=== PATIENT | female | born 1955 | race Caucasian/White ===

== ENCOUNTER 2016-12-29 01:40 | Inpatient (IN) ==
[2016-12-29] MEDS ORDERED: ALBUTEROL NEB ONE (01:45)
[2016-12-29] MEDS ORDERED: ASPIRIN PO STA (01:45)
[2016-12-29] MEDS ORDERED: SOLU-MEDROL IV ONE (01:46)
[2016-12-29] MEDS ORDERED: ALBUTEROL NEB INH ONE (01:46)
[2016-12-29] MEDS ORDERED: DUONEB (A & A) INH ONE (01:46)
[2016-12-29 02:10] LABS: MANUAL DIFF NEEDED? NO
[2016-12-29 02:20] LABS: BASO% 0.3 % (0.0-0.8); EOS# 0.05 X1000 (0.0-0.7); EOS% 0.4 % (0.0-10.0); HEMATOCRIT 40.4 % (37.0-47.0); HEMOGLOBIN 13.6 g/dL (12.0-16.0); IMM GRAN# 0.02 X1000 (0.0-0.04); IMM GRAN% 0.2 % (0.0-0.5); LYMPH# 1.52 X1000 (1.2-3.4); LYMPH% 13.2 % (20.5-51.1); MCHC 33.7 g/dL (33-37); MONO# 0.39 X1000 (0.11-0.59); MONO% 3.4 % (1.7-9.3); MPV 9.4 FL (7.4-10.4); NEUT% 82.5 % (42.2-75.2); PLT 315 X1000 (130-400); RBC 4.39 XMIL (4.2-5.4)
[2016-12-29 02:23] LABS: INR 0.86 (0.86-1.15); PROTIME 12.4 Seconds (12.1-15.5)
[2016-12-29 02:24] LABS: PTT PL 32.9 Seconds (22.6-43.9)
[2016-12-29 02:27] LABS: AGAP 10; ALBUMIN 3.9 g/dL (3.5-5.0); ALKALINE PHOSPHATASE 71 U/L (32-104); BUN 20 mg/dL (8-22); CALCIUM 9.4 mg/dL (8.8-10.2); CHLORIDE 98 mmol/L (98-107); CK PROFILE 138 U/L (24-173); COSMO 278; GOT 37 U/L (10-30); GPT 29 U/L (10-36); MAGNESIUM 2.1 mg/dL (1.5-2.7); POTASSIUM 4.5 mmol/L (3.5-5.1); SODIUM 135 mmol/L (136-145); TCO2 27 mmol/L (25-35); TOTAL PROTEIN 6.6 g/dL (6.3-8.3)
[2016-12-29] MEDS ORDERED: HEPARIN IV ONE (03:04)
[2016-12-29 03:15] LABS: BE 3.3 mmoll (-3.0-3.0); BLOOD TYPE ARTERIAL; DRAW SITE L BRACHIAL; METHB 1.4 % (0.0-1.5); O2(CT) 19.4 mL/dL (15.0-23.0); PO2(98.6) 98 mmHg (60-100); SAMPLE BLOOD; SAO2 98.7 % (95.0-100.0); THB 14.5 g/dL (11.5-17.4); pH(98.6) 7.35 (7.35-7.45)
[2016-12-29] MEDS ORDERED: HEPARIN 25,000 UNITS/D5W 25,000 UNIT/250 ML IV.SOLN IV SCH (03:15)
[2016-12-29 03:17] LABS: ALLEN TEST NO; MODALITY BI PAP; PCO2(98.6) 55 mmHg (35-45)
--- NOTE | 2016-12-29 04:25 | EKG Report ---
Test Performed on : 12/29/2016 02:55:17 AM Test Reason : CHEST PAIN Blood Pressure : / mmHG Vent. Rate : 086 BPM Atrial Rate : 086 BPM P-R Int : 168 ms QRS Dur : 070 ms QT Int : 330 ms P-R-T Axes : 084 -62 082 degrees QTc Int : 394 ms Normal sinus rhythm. Possible Left atrial enlargement Left axis deviation Anteroseptal infarct , age undetermined Abnormal ECG When compared with ECG of 23-JAN-2016 11:46, Anteroseptal infarct is now present Nonspecific T wave abnormality no longer evident in Inferior leads T wave inversion no longer evident in Anterior leads Unconfirmed Result
--- NOTE | 2016-12-29 04:45 | PROVIDER DOCUMENTATION ---
This chart was entered by Divya Smith Scribe, acting as scribe for Edgardo Myers MD. HPI-Respiratory General - General Chief Complaint: Shortness of Breath Stated Complaint: CHEST PAIN Time Seen by Provider: 12/29/16 01:45 Source: patient Allergies/Adverse Reactions: Patient Allergies Allergy/AdvReac Type Severity Reaction Status Date / Time No Known Allergies Allergy Verified 12/29/16 01:59 Home Medications: Home Medication List Medication Instructions Recorded Confirmed Last Taken Type Albuterol Sulfate Inhaler 1 - 2 puff INH Q4H PRN PRN 05/02/15 01/23/16 12/29/16 01:15 History [Ventolin Hfa] Montelukast Sodium [Singulair] 10 mg PO QAM 05/02/15 01/23/16 1 Day Ago History Rosuvastatin Calcium [Crestor] 10 mg PO HS 05/02/15 01/23/16 1 Day Ago History Aspirin EC 81 mg PO DAILY 12/29/16 12/29/16 1 Day Ago History Buspirone HCl [Buspirone HCl] 10 mg PO QHS 12/29/16 12/29/16 1 Day Ago History Carvedilol [Coreg] 3.125 mg PO BID 12/29/16 12/29/16 1 Day Ago History Fluticasone/Salmeterol [Advair 1 unit INH BID 12/29/16 12/29/16 1 Day Ago History 250-50 Diskus] Isosorbide Mononitrate E.r. [Imdur] 30 mg PO DAILY 12/29/16 12/29/16 1 Day Ago History Loratadine [Loratadine] 10 mg PO DAILY 12/29/16 12/29/16 1 Day Ago History Nitroglycerin [Nitrostat] 12/29/16 12/29/16 01:00 History - History of Present Illness-Resp Nature of Presenting Problem: 61 Y/O f present to ER with the complain of SOB and chest pain x1 hour [employer]. pt has Hx of COPD and GA Severity in ED: reports: moderate Onset/Duration: reports: 1 hour ago Timing: reports: still present Cough Quality/Degree: reports: no cough Current Respiratory Medication Therapy: Initiated see nurses note Associated Symptoms: reports: chest pain/soreness, short of breath Review of Systems - Adult - REVIEW OF SYSTEMS - ADULT Constitutional: reports: no symptoms reported Eyes: reports: no symptoms reported Ears, Nose, Mouth & Throat: reports: no symptoms reported Cardiovascular: reports: chest pain. denies: palpitations Respiratory: reports: shortness of breath. denies: cough Gastrointestinal: reports: no symptoms reported Genitourinary: reports: no symptoms reported Musculoskeletal: reports: no symptoms reported Integumentary: reports: no symptoms reported Neurological: reports: no symptoms reported Psychiatric: reports: no symptoms reported Endocrine: reports: no symptoms reported Hematologic/Lymphatic: reports: no symptoms reported Allergic/Immunologic: reports: no symptoms reported All Other Systems: Reviewed and Negative Past History - Adult - PAST MEDICAL HISTORY-ADULT Review of Records: reports: Old Records Reviewed, Nursing Assessment Review Cardiovascular: reports: HTN, hyperlipidemia Respiratory: reports: asthma, COPD - IMMUNIZATION STATUS Childhood Immunizations: See Nurse Assessment Flu Vaccine: See Nurse Assessment Physical Exam-General - PHYSICAL EXAM-ADULT Initial Vital Signs Reviewed: Yes - CONSTITUTIONAL General Appearance: alert, mild distress - EYES Eyes: PERRL/EOMI, pink conjunctivae - HEAD, EARS, NOSE, MOUTH & THROAT HENMT: normocephalic/atraumatic, moist mucous membranes, normal ENT inspection - NECK Neck: non-tender, full range of motion, supple - RESPIRATORY Respiratory: respiratory distress, decreased breath sounds - CARDIOVASCULAR Cardiovascular: normal peripheral pulses, regular rate, rhythm - GASTROINTESTINAL (ABDOMEN) Abdominal Exam: normal bowel sounds, non tender, soft - MUSCULOSKELETAL Back Exam: normal inspection, no CVA tenderness, no vertebral tenderness Extremity: non-tender, normal inspection - SKIN Integumentary: normal color, normal turgor, warm/dry - NEUROLOGIC Neurologic: grossly normal, no motor/sensory deficits - PSYCHIATRIC Psych/Mental Status: normal mood/affect, normal thought content, normal thought process, oriented x 3 Progress - PLAN OF CARE/RESULTS Progress/Plan/Lab Results: Vital Signs - 8 hr 12/29/16 01:44 12/29/16 01:45 12/29/16 03:00 Temperature 97.2 F L Pulse Rate 99 H 96 H 87 Respiratory Rate 31 H 36 H 26 H Blood Pressure 142/94 99/73 O2 Sat by Pulse Oximetry 98 96 98 12/29/16 03:15 12/29/16 04:15 Temperature Pulse Rate 88 89 Respiratory Rate 23 26 H Blood Pressure 101/77 107/69 O2 Sat by Pulse Oximetry 96 99 Laboratory Results - last 24 hr 12/29/16 12/29/16 12/29/16 01:50 02:00 02:00 WBC RBC Hgb Hct MCV MCH MCHC RDW Std Deviation Plt Count MPV Immature Gran % (Auto) Neut % (Auto) Lymph % (Auto) Crane % (Auto) Eos % (Auto) Baso % (Auto) Immature Gran # (Auto) Neut # (Auto) Lymph # (Auto) Crane # (Auto) Eos # (Auto) Baso # (Auto) PT INR APTT (Factor Assay) D-Dimer Specimen Type ARTERIAL Sample Site L BRACHIAL pH 7.35 pCO2 55 H* pO2 98 HCO3 27.4 H Base Excess 3.3 H Oxyhemoglobin 94.6 L ABG O2 Sat (Calculated) 19.4 ABG O2 Saturation 98.7 ABG Carboxyhemoglobin 2.80 H ABG Methemoglobin 1.4 Miguel Test NO A-a O2 Difference 33.0 Total Hemoglobin 14.5 Lactate 0.90 Blood Gas Modality BI PAP Vent Mode BIPAP FiO2 % 28.0 Inspiratory BiPAP 16.0 Expiratory BiPAP 6.0 Sodium 135 L Potassium 4.5 Chloride 98 Carbon Dioxide 27 Anion Gap 10 BUN 20 Creatinine 0.6 Estimated GFR/1.73 m2 > 60 BUN/Creatinine Ratio 33 Glucose 193 H Calculated Osmolality 278 Calcium 9.4 Magnesium 2.1 Total Bilirubin 0.70 AST 37 H ALT 29 Alkaline Phosphatase 71 Creatine Kinase 138 Troponin T 0.135 H Dln-O-Kafqyyludki Pept Total Protein 6.6 Albumin 3.9 Globulin 3.0 Albumin/Globulin Ratio 1.0 12/29/16 12/29/16 12/29/16 02:00 02:00 02:00 WBC 11.49 H RBC 4.39 Hgb 13.6 Hct 40.4 MCV 92.0 MCH 31.0 MCHC 33.7 RDW Std Deviation 11.6 Plt Count 315 MPV 9.4 Immature Gran % (Auto) 0.2 Neut % (Auto) 82.5 H Lymph % (Auto) 13.2 L Crane % (Auto) 3.4 Eos % (Auto) 0.4 Baso % (Auto) 0.3 Immature Gran # (Auto) 0.02 Neut # (Auto) 9.48 H Lymph # (Auto) 1.52 Crane # (Auto) 0.39 Eos # (Auto) 0.05 Baso # (Auto) 0.03 PT 12.4 INR 0.86 APTT (Factor Assay) 32.9 D-Dimer 0.67 H Specimen Type Sample Site pH pCO2 pO2 HCO3 Base Excess Oxyhemoglobin ABG O2 Sat (Calculated) ABG O2 Saturation ABG Carboxyhemoglobin ABG Methemoglobin Miguel Test A-a O2 Difference Total Hemoglobin Lactate Blood Gas Modality Vent Mode FiO2 % Inspiratory BiPAP Expiratory BiPAP Sodium Potassium Chloride Carbon Dioxide Anion Gap BUN Creatinine Estimated GFR/1.73 m2 BUN/Creatinine Ratio Glucose Calculated Osmolality Calcium Magnesium Total Bilirubin AST ALT Alkaline Phosphatase Creatine Kinase Troponin T Udq-U-Fnectayqusf Pept 83 Total Protein Albumin Globulin Albumin/Globulin Ratio Orders Category Date Time Status Cardiac Monitoring DIRECTED Care 12/29/16 01:45 Active Oxygen Therapy- ED Nursing DIRECTED Care 12/29/16 01:45 Active Saline Loc NOW Care 12/29/16 01:45 Active CHEST-PORTABLE [RAD] Stat Exams 12/29/16 01:[address] ANGIOGRM/PULMONARY ARTERIES [CT] Stat Exams 12/29/16 03:02 Taken ABG [RESP] Routine Lab 12/29/16 01:50 Completed CBC WITH ELECTRONIC DIFF [HEME] Stat Lab 12/29/16 02:00 Completed CK PROFILE [SP CHEM] Stat Lab 12/29/16 02:00 Completed COMPREHENSIVE METABOLIC PANEL [CHEM] Stat Lab 12/29/16 02:00 Com[address] D-DIMER PL [COAG] Stat Lab 12/29/16 02:00 Completed MAGNESIUM [CHEM] Stat Lab 12/29/16 02:00 Completed PRO B-NATRIURETIC PEPTIDE Stat Lab 12/29/16 02:00 Com[address]IME WITH INR PL [COAG] Stat Lab 12/29/16 02:[address] [COAG] Stat Lab 12/29/16 02:00 Completed TROPONIN T Stat Lab 12/29/16 02:00 Completed Albuterol 2.5MG/Ipratrop 0.5MG [Duoneb (A & A)] Med 12/29/16 01:46 Discontinued 3 ml INH NOW ONE Albuterol [Albuterol Neb] Med 12/29/16 01:45 Discontinued 5 mg .ROUTE .STK-MED ONE Albuterol [Albuterol Neb] Med 12/29/16 01:46 Discontinued 5 mg INH NOW ONE Aspirin Med 12/29/16 01:45 Discontinued 325 mg PO STAT STA Heparin Med 12/29/16 03:04 Discontinued 5,000 unit IV NOW ONE Heparin 25,000 Units/D5w Med 12/29/16 03:15 Active 25,000 unit in 250 ml IV 5.443 mls/hr Methylprednisolone Sod Succ [Solu-Medrol] Med 12/29/16 01:46 Discontinued 125 mg IV NOW ONE Aerosol Treatments Routine Oth 12/29/16 01:46 Completed Aerosol Treatments Stat Oth 12/29/16 01:46 Completed BIPAP Stat Oth 12/29/16 01:50 Active EKG [EKG] Stat Ther 12/29/16 01:45 Draft Result Diagrams: 12/29/16 02:00 12/29/16 02:00 - REASSESSMENT Reassessment #1 Time Reassessed: 03:17 (pt reports breathing much easier and all chest pain has stopped) Status: improving - EKG 1 Time of EKG reading by physician:: 02:55 EKG Read and Signed by:: Edgardo Myers EKG Interpretation (*Must complete 3 of following elements*): Abnormal Rate: 86 Rhythm: normal sinus rhythm Comments: abnormal ECG - XRAY 1 XRAY: Bilateral XRAY Study: Chest Impression: Abnormal XRAY Interpretation: progressive COPD by Dr. Torrez - CT/MRI 1 CT Study: Angiogram (anterior and mediatinal masses, right upper lobe mass all concerning for malignancy) Departure - Departure Date of Disposition Decision: 12/29/16 Time of Disposition Decision: 04:44 DIAGNOSIS: COPD exacerbation, Elevated troponin, Lung mass Disposition: ADMITTED INPATIENT 09 Certified Medical Emergency: Emergent Condition: Stable Referrals and Follow-Ups: None,PCP [Primary Care Provider] - - Critical Care Note This patient required my direct & personal management of CC.: No Attestation - Physician/ ADARSH Attestation Patient care was provided by Advanced Practice Provider:: No The physician spent face to face time with patient:: Yes Advanced Practice Provider documentation review:: Supervising physician onsite and consulted in the evaluation and care of this patient. The physician did have a face to face encounter with the patient. This chart was documented by the indicated scribe, (Ghera,Divya, Scribe) and accurately reflects the services I performed and decisions made by me, Edgardo Myers MD, as attested by the provider's signature.
--- NOTE | 2016-12-29 07:23 | Diag Imaging Result Doc PS360 ---
EXAM: CHEST-PORTABLE HISTORY: sob TECHNIQUE: Two views COMPARISON: 01/23/2016 FINDINGS: The lungs are hyperexpanded. Heart is not enlarged. The pulmonary vessels are small. There are no infiltrates. No pleural effusions identified. Superior mediastinal prominence on the right. This was not present on the prior exam. IMPRESSION: 1.Emphysema 2.Superior mediastinal prominence concerning for adenopathy or mass. This was not present on the prior exam. Electronically signed by Archie Denny 12/29/2016 7:21 AM
--- NOTE | 2016-12-29 08:14 | Diag Imaging Result Doc PS360 ---
EXAM: CT ANGIOGRM/PULMONARY ARTERIES HISTORY: sob/cp/+ d dimer TECHNIQUE: CT chest with contrast. Dose reduction protocol. MIP images obtained. COMPARISON: 01/23/2016 FINDINGS: There is a large right-sided superior and middle mediastinal mass extending into the hilum. At the level of the amina the mass/adenopathy measures 2.8 x 4.1 cm. In the anterior upper mediastinum the mass measures at least 2.8 x 5.7 cm. There is extrinsic narrowing of the right main pulmonary artery and right upper lobe pulmonary artery. Normal opacification of the pulmonary arteries and their branches. No pleural effusions. No cardiomegaly. No thoracic aortic aneurysm or dissection. Mild to moderate emphysematous changes. There is an oblong spiculated 7 x 14 mm nodule posteriorly in the right upper lobe. Vague oblong 9 mm density in the right upper lobe. IMPRESSION: 1.Mass and adenopathy consistent with malignancy 2.Emphysema 3.No pulmonary emboli 4.A pulmonary report was given at 4:29 AM Electronically signed by Archie Denny 12/29/2016 8:11 AM
[2016-12-29] MEDS: ASPIRIN EC PO SCH (08:42)
[2016-12-29] MEDS: IMDUR PO SCH (08:42)
[2016-12-29] MEDS: CLARITIN PO SCH (08:42)
[2016-12-29] MEDS ORDERED: COREG PO SCH (09:00)
[2016-12-29] MEDS ORDERED: BROVANA NEB ONE ×2 (09:25→19:21)
[2016-12-29] MEDS: BROVANA NEB INH SCH ×2 (09:34→19:33)
[2016-12-29] MEDS: PULMICORT INH SCH ×2 (09:35→19:33)
[2016-12-29] MEDS: COZAAR PO SCH (12:16)
--- NOTE | 2016-12-29 12:24 | CONSULTATION ---
DATE OF CONSULTATION: 12/29/2016 REASON FOR CONSULT: Cardiology was consulted for abnormal cardiac enzymes. HISTORY OF PRESENT ILLNESS: Ms. Maria Esther Cormier is a 61-year-old lady who has COPD, emphysema, hypertension, hyperlipidemia and has had a non-Q-wave myocardial infarction. On 01/24/2016 was transferred to [facility] and underwent coronary angiogram which revealed normal coronary arteries. Non ST elevation with at Takotsubo appearance on LV function and subsequently was discharged from there. She is a chronic smoker, having smoked about a pack of cigarettes a day all her life and has recently quit smoking. She came in with increasing shortness of breath for the last couple of weeks associated with mucopurulent expectoration. Denies any fevers or chills. There is no hemoptysis. As far as chest pains are concerned, she has had chronic shortness of breath for 4 years and had episode of chest pain when she was admitted in January 2016 at [facility] and subsequently 2 days back had some episode of chest pain. There is no radiation to the back or down the arms. She was admitted she underwent a CT angiogram which was suspicious for likely malignancy. From a cardiac standpoint, there are no palpitations. There is no dizziness or syncope. REVIEW OF SYSTEMS: A full 14-point review of system was done. Gastrointestinal : There is no history of nausea, vomiting, diarrhea. There is no history of hematemesis or melena. Cardiovascular: As above. Endocrine: Stable. Respiratory: As above. In addition, there is no fevers or chills. Genitourinary: There is no dysuria or hematuria. PAST MEDICAL HISTORY: 1. Hypertension. 2. Hyperlipidemia. 3. COPD on home O2. 4. Non ST elevation chronic likely troponin abnormality with normal coronary arteries with Takotsubo appearance on the left ventricular function. By cardiac catheterization on 01/25/2016 at [facility] left main was normal. Left anterior descending artery was normal. Circumflex continued as a small obtuse marginal artery. Right coronary artery, posterolateral branches were free of disease. LV ejection fraction at that time was soft 40% with hyperdynamic posterobasal segments suggestive of Takotsubo appearance. HOME MEDICATIONS: Aspirin 81 mg a day. Loratadine 10, buspirone 10, Coreg 3.125 b.i.d., isosorbide 30. Inhalers, montelukast, lovastatin. ALLERGIES: She not known to be allergic to any medication. SOCIAL HISTORY: She does not drink. She is a chronic smoker, has recently quit smoking. PHYSICAL EXAMINATION: Vital Signs: Blood pressure 118/92. Cardiovascular: Normal jugular venous pressure. There no thyromegaly. There no carotid bruit. First and second heart sounds were heard. There was no S3 gallop. Respiratory: Scattered wheeze. Abdomen : Soft, nontender. There was no guarding or rigidity. Bowel sounds were heard. Central nervous system: Alert and was moving all 4 extremities. Extremities: Examination of extremities revealed no pedal edema. HEENT: Atraumatic, normocephalic. Pupils were equal and reacting to light. LABORATORY EXAMINATION: Revealed a troponin when she came in was 0.135. Troponin was abnormal subsequently on 0.329. Previous troponin on 01/23/2016 was 0.480, on 2015 subsequently was 0.388 and 0.288. She had a pulmonary arteriogram done which revealed mass and adenopathy consistent with malignancy in the right sided superior middle mediastinal. There was no pulmonary emboli. Emphysema was noted next. Chemistry: Sodium 135, potassium 4.5, BUN 20, creatinine 0.6. Hematology: Hemoglobin 13.6, hematocrit 40, platelet count of 315,000. ASSESSMENT AND PLAN: Ms. Maria Esther Cormier is a 61-year-old lady who is a smoker, has COPD emphysema has had Takotsubo cardiomyopathy with normal coronary arteries on . From a cardiac standpoint: 1. She has elevated troponin and she has had this probably chronically elevated troponin given her recent cardiac catheterization, and abnormal troponin as mentioned above in on January 2016. She has type 2 myocardial infarction which is in the setting of normal coronary arteries and Takotsubo pattern. Given this we will add Cozaar 50 mg to her medical regimen. In addition to increasing the Coreg to 6.25 mg twice daily and continue with the aspirin. We will get an echocardiogram to reassess cardiac and valvular function. 2. I will discontinue the IV heparin drip and treat her medically. Electrocardiogram does not reveal any ST elevation and given this, we would recommend continuing with the aspirin. 3. She was diagnosed to have new likely malignancy by her CT scan. Oncology has been consulted. Would recommend proceeding with testing and treatment for her likely malignancy as deemed fit. 4. Chronic obstructive pulmonary disease and emphysema. Continue with current medication. 5. Hypercholesterolemia. She is on Crestor. I have not made any changes to her medications. Thank you for the consult. We will follow hospital course. cc: Edy Kirkland MD MTDDolores
--- NOTE | 2016-12-29 15:03 | PROGRESS NOTE ---
DATE: 12/29/2016 Ms. Cormier was admitted I think on today. Presented with chest pain. A 61-year-old with history of COPD, emphysema, hypertension, hyperlipidemia, has had a non-Q-wave myocardial infarction. On 01/23/2006 he was transferred to [facility], underwent coronary arteriogram which revealed normal coronary arteries, Non ST elevation with Takotsubo appearance in LV function. Subsequently he was discharged from there. He is a chronic smoker having smoked about a pack of cigarettes a day. Recently quit smoking. She came in with increased shortness of breath last couple weeks associated with mucopurulent expectoration. Denies fever or chills. No hemoptysis. She was having chest pains which started during the eclipse and she has had them off and on. Chronic shortness of breath for over 4 years. She was admitted back in 2016 to [facility]. Subsequently 2 days back had some episodes of chest pain. No radiation to the back or arms. Underwent CT angiogram suspicious and likely malignancy. Cardiac standpoint, there are no palpitations, no dizziness or syncope. So she has non ST elevation likely troponin abnormality with normal coronary arteries, Takotsubo appearance in left ventricular function. Cardiac catheterization done 01/25/2016 at [facility], left main was normal, left anterior descending was normal, circumflex continued small obtuse marginal artery, right coronary artery was free of disease. Ejection fraction was 40%. Hyperdynamic posterior basal segment suggestive of Takotsubo appearance. Moved her to the [facility]. She had a fairly recent catheterization. ASSESSMENT AND PLAN: 1. She has type 2 myocardial infarction which is in a setting of normal coronary arteries and Takotsubo pattern. They are going to add Cozaar to her regimen 50 mg, and Coreg 6.25 mg b.i.d., get an echocardiogram to assess cardiac and valvular function. 2. Discontinue the IV heparin and treat her medically. Electrocardiogram does not reveal ST elevation. Continue with the aspirin. 3. Diagnosis of likely malignancy on CT scan. Oncology was consulted. Recommend proceeding with testing treatment for underlying malignancy. 4. Chronic obstructive pulmonary disease. Log history of smoking. 5. Hypercholesterolemia. Her pulmonary arteriogram revealed mass adenopathy consistent with malignancy, emphysema. No pulmonary emboli. There is a large right-sided superior middle mediastinal mass extending into the hilum at the level of the amina. The mass measures 2.8 x 5.7, extensive narrowing of the right main pulmonary artery, right upper lobe artery, normal opacification of the pulmonary arteries and other branches. cc: Miguel Ovalle MD
--- NOTE | 2016-12-29 15:37 | HISTORY AND PHYSICAL ---
PRIMARY CARE PHYSICIAN: None. CHIEF COMPLAINT: Shortness of breath and incidental finding of new mediastinal mass. HISTORY OF PRESENT ILLNESS: Ms. Cormier is a 61-year-old female with past medical history of hypertension, hyperlipidemia, COPD on 2 L at home, [place] in January 2016. Comes to the hospital via ambulance, transferred from [place]. Patient presented to [place] earlier this morning complaining of shortness of breath. According to the patient the power went off and that was what triggered her shortness of breath. Therefore they went to [place] for COPD treatment. The patient had inhalation treatment and shortness of breath improved. She is back to baseline. However while she was in the emergency room at [place] she developed chest pain. Troponins were obtained. First troponin was positive at 0.135. Heparin treatment 25,000 units was started. Also a D-dimer was obtained to rule out a pulmonary embolism. The D-dimer came back positive and a CT scan was done. There was no pulmonary embolism. However the CT scan revealed new anterior mediastinal masses. Therefore patient was transferred to [facility] for further evaluation and treatment by Oncology. REVIEW OF SYSTEMS: According to the patient, she has lost 12 pounds in 6 weeks. No night sweats. All other systems were reviewed and were negative except as stated above. In the emergency room over at [place] she was getting aspirin and heparin 25,000 units, and D5 W, Solu-Medrol, and nebulization treatments. PAST MEDICAL HISTORY: Hypertension, hyperlipidemia, COPD on 2 L. [place] in 2015. Per patient, she was taken to [place] in 2016 to do cardiac cath, however no stents were placed. PAST SURGICAL HISTORY: None. ALLERGIES: None. HOME MEDICATIONS: 1. Montelukast 10 mg tablet oral daily. 2. Crestor 10 mg tablet oral daily. 3. Ventolin inhaler daily. 4. Fluticasone-salmeterol 1 inhalation twice a day. 5. Isosorbide mononitrate 30 mg tablet oral daily. 6. Carvedilol 3.125 mg tablet twice a day. 7. Nitroglycerin 0.4 mg sublingual p.r.n. chest pain. 8. Buspirone 10 mg tablet oral daily. 9. Loratadine 10 mg once a day. 10. Aspirin 81 mg tablet oral daily. SOCIAL HISTORY: Patient quit smoking in 2016. The patient denies using alcohol. The patient admits using marijuana treatment for panic attacks. FAMILY HISTORY: Mother and father both have coronary artery disease. Mother has diabetes. COMPLETE PHYSICAL EXAM: Vitals: Temperature 98.3 degrees, pulse 28, blood pressure 118/92, oxygen saturation 2 L nasal cannula. General: Patient is alert and oriented x3. Mild distress. HEENT: Head is normocephalic, atraumatic. Eyes, DARSHANA. Dry mucous membranes. Neck: Supple. Pulmonary: Bilateral scattered wheezing. Diminished breath sounds in all lung jimenez. The patient is using accessory muscles. Cardiovascular: S1, S2. Mild systolic murmur on the left sternal border. No gallops. Abdomen: Soft, nondistended, nontender. Extremities: No lower extremity edema. The patient is unable to stand up due to generalized weakness. Neurologic: Cranial nerves 2-12 grossly intact. No focal deficits. Psych: Normal mood and affect. INITIAL LAB DATA: White blood cell count 11.5, hemoglobin 13.6, hematocrit 40Dm platelets 315,000. Sodium 135, potassium 4.5, BUN 20, creatinine 2.6, bicarb 27, troponin number 1 positive at 2 a.m. which was 0.135. BNP 83. D-dimer positive at 0.6. Troponin number 2 pending. IMAGING: CT scan of the chest shows new anterior mediastinal masses which was informed to at [place]. Official read is still pending. ASSESSMENT AND PLAN: 1. New anterior mediastinal masses. The patient is aware of the new findings. Dr. Carroll from Oncology was asked to see the patient as a consult. 2. Chest pain. Currently patient is asymptomatic. Has some musculoskeletal pain over the right and left side of the chest. As mentioned above patient received 25,000 units of heparin at [place]. We will get 2 more sets of troponins. 3. Chronic obstructive pulmonary disease. The patient uses inhalers at home. While she is in the hospital we will provide her with Pulmicort, Brovana, and DuoNeb. The patient is back at her baseline. 4. Coronary artery disease. We will continue patient's home medications, aspirin. 5. Hypertension. We will continue patient's home medication. 6. Generalized weakness. Physical therapy evaluation was placed. cc: Dara Mays MD
--- NOTE | 2016-12-29 16:04 | ECHO REPORT ---
ORDER DATE: 12/29/2016 ECHOCARDIOGRAPHIC MEASUREMENTS: 1. Interventricular septum 1.0. Left ventricular posterior wall 0.9. Diastolic diameter 4.4. 2. Left atrium 3.1. Aorta 3. 3. Technically suboptimal study. 4. Definity was used to better assess left ventricular systolic function. Normal left ventricular cavity size. Increased contractility at the base with significant distal anteroapical akinesis suggestive of Takotsubo cardiomyopathy, ejection fraction of 30%. Aortic valve leaflets are trileaflet. There is no aortic stenosis or regurgitation. Mitral valve was normal. There is mild mitral regurgitation. Tricuspid valve was normal. There is mild tricuspid regurgitation. There was mild pulmonary regurgitation. 5. Peak velocity across the tricuspid valve was 2.6 m/sec. 6. There is no pericardial effusion or obvious intracardiac mass or thrombus seen. cc: Edy Kirkland MD
[2016-12-29] MEDS: COREG PO SCH (20:34)
[2016-12-29] MEDS: BUSPAR PO SCH (20:34)
[2016-12-29] MEDS: CRESTOR PO SCH (20:34)
--- NOTE | 2016-12-30 05:45 | EKG Report ---
Test Performed on : 12/29/2016 10:21:58 AM Test Reason : elevated trop Blood Pressure : / mmHG Vent. Rate : 086 BPM Atrial Rate : 086 BPM P-R Int : 164 ms QRS Dur : 074 ms QT Int : 342 ms P-R-T Axes : 081 -65 055 degrees QTc Int : 409 ms Normal sinus rhythm. Possible Left atrial enlargement Left axis deviation Anteroseptal infarct (cited on or before 29-DEC-2016) Abnormal ECG When compared with ECG of 29-DEC-2016 02:55, (Unconfirmed) Questionable change in initial forces of Septal leads Nonspecific T wave abnormality no longer evident in Lateral leads Confirmed by Arley Antonio MD ([id number]) on 01/01/2017 7:19:03 PM
--- NOTE | 2016-12-30 06:30 | EKG Report ---
Test Performed on : 12/30/2016 06:09:46 AM Test Reason : sob Blood Pressure : / mmHG Vent. Rate : 084 BPM Atrial Rate : 084 BPM P-R Int : 156 ms QRS Dur : 076 ms QT Int : 388 ms P-R-T Axes : 083 007 231 degrees QTc Int : 458 ms Normal sinus rhythm. T wave abnormality, consider inferior ischemia T wave abnormality, consider anterolateral ischemia Abnormal ECG When compared with ECG of 29-DEC-2016 10:21, (Unconfirmed) QRS axis shifted right Criteria for Anteroseptal infarct are no longer present T wave inversion now evident in Inferior leads T wave inversion now evident in Anterolateral leads Confirmed by Arley Antonio MD ([id number]) on 01/01/2017 7:25:23 PM
[2016-12-30] MEDS: PULMICORT INH SCH ×2 (07:48→19:15)
[2016-12-30] MEDS: DUONEB (A & A) INH PRN (07:48)
[2016-12-30] MEDS: BROVANA NEB INH SCH ×2 (07:48→19:15)
[2016-12-30] MEDS: IMDUR PO SCH (08:12)
[2016-12-30] MEDS: ASPIRIN EC PO SCH (08:12)
[2016-12-30] MEDS: CLARITIN PO SCH (08:12)
[2016-12-30] MEDS: COREG PO SCH ×2 (08:12→20:33)
[2016-12-30] MEDS: COZAAR PO SCH (08:12)
--- NOTE | 2016-12-30 08:52 | PROGRESS NOTE ---
DATE: 12/30/2016 SUBJECTIVE: Ms. Cormier said she had a good night. She has not had any chest pain through the night. Last chest pain was yesterday morning. She reported that she has lost about 13 pounds in the last couple months. She denies any shortness of breath at this time. I think she quit smoking a couple months ago, but I want to say, she said April. Her. OBJECTIVE: Vital signs: Today, temp 97.5 degrees, pulse 80, respirations 20, blood pressure has been ranging between 95 to 128, 65 and 85. Her lungs are clear anterolateral and decreased breath sounds both bases. Neck: Veins are nondistended. Abdomen: Soft. Skin: Warm and dry. Extremities: No pedal edema. REVIEW OF LABS: No new lab today. Reviewed lab from yesterday: White count 11,490, hematocrit 40, platelet count 315,000. Sodium 135, potassium 4.5, chloride 98, bicarb 27, BUN 20, creatinine 0.6. Transaminases: AST was mildly elevated at 37. Her troponin had bumped up from 1.135 to 0.329 consistent with a non-ST MN. ASSESSMENT AND PLAN: 1. Appears she has type 2 myocardial ischemia. She has had normal coronaries by heart catheterization a year ago. She had a Takotsubo pattern and so, I think we are going to repeat an echocardiogram to assess left ventricular function. She had no further chest pain. Cardiology on the case. 2. She has a non-ST ischemia. We discontinued the IV heparin, and continued the aspirin. 3. Questionable malignancy. There is a mass on the CT scan and so pulmonary was involved. We also got Oncology involved. 4. Chronic obstructive pulmonary disease. Long history of smoking. Air and gas exchange good at this time. 5. Hypercholesterolemia. Aware blood pressures appear well controlled. Looking over her orders, I do not see any changes at this point. She was started on Coreg 6.25 mg b.i.d. She is on buspirone 10 mg at bedtime, aspirin 81 mg a day. She is on her bronchodilators with albuterol. She is on her air formoterol and on Crestor 10 mg a day. We stopped the aspirin. cc: Miguel Ovalle MD
[2016-12-30] MEDS ORDERED: LOVENOX SUBQ SCH (09:00)
--- NOTE | 2016-12-30 14:07 | Diag Imaging Result Doc PS360 ---
EXAM: CT ABD/PELVIS W/ IV CONT ONLY HISTORY: r/o mets TECHNIQUE: CT of the abdomen and pelvis with intravenous contrast and reduced radiation dose. COMMENT: There are no previous abdominal studies available for comparison. The visualized portion of the chest has not changed significantly since the previous thoracic study of 12/29/2016. There is severe atherosclerotic change in the distal thoracic descending aorta and there are calcifications throughout the abdominal aorta. The mesenteric and renal arteries are patent. The infrarenal abdominal aorta is slightly distended to a maximum AP dimension of 1.7 cm. Atherosclerotic calcifications are present throughout the iliac arteries. Retained fluid and food particles are present in the stomach. No oral contrast was administered. There is a 2.5 cm cyst in the mid right kidney with some cortical scarring in the lower pole. Left kidney is unremarkable. The spleen is not enlarged. The adrenal glands are within normal limits. The gallbladder is not distended and the liver is unremarkable in appearance. The pancreas is within normal limits. There is no evidence of significant adenopathy. There is some gas and stool in the colon. There is some small bowel fluid. Pelvis: The urinary bladder is unremarkable. There is no evidence of free fluid. There are no adnexal masses. There is no evidence of significant adenopathy. No acute bony abnormalities are present. IMPRESSION: No evidence of metastatic disease in the abdomen or pelvis. Electronically signed by Jean Carlos Waters 12/30/2016 2:05 PM
[2016-12-30] MEDS: SOLU-MEDROL IV SCH (18:24)
[2016-12-30] MEDS: BUSPAR PO SCH (20:33)
[2016-12-30] MEDS: CRESTOR PO SCH (20:39)
--- NOTE | 2016-12-30 20:50 | CONSULTATION ---
DATE OF CONSULTATION: 12/30/2016 REQUESTING PHYSICIAN: Dr. Miguel Ovalle. REASON FOR CONSULTATION: Lung mass. HISTORY OF PRESENT ILLNESS: Ms. Cormier is a 61-year-old white female with extensive tobacco history, nonsmoker for approximately 1-1/2 years, history of Takotsubo's cardiomyopathy, history of severe COPD with chronic hypercapnic respiratory failure, who reports increased fatigue and weight loss with intermittent shortness of breath over the last several months. The patient presented to the emergency room 12/29/2016 complaining of chest pain and shortness of breath. Chest x-ray revealed new hilar fullness which was not present on her prior film. She underwent a CT pulmonary angiogram which revealed a large mediastinal mass which extends past the trachea around the pulmonary arteries to the level of the right middle lobe. No emboli were identified. The patient has diffuse emphysematous changes. Pulmonary consultation was requested. PAST MEDICAL HISTORY: Problem List: 1. Severe COPD with chronic hypoxemic respiratory failure as per above. 2. Takotsubo's cardiomyopathy. 3. Dyslipidemia. 4. Hypertension. SOCIAL HISTORY: No alcohol use. Prior tobacco use as per above. The admission H and P notes that she intermittently uses marijuana for panic attacks. FAMILY HISTORY: Positive for COPD in her mother and father. REVIEW OF SYSTEMS: As noted in the HPI. PHYSICAL EXAMINATION: General: Reveals a thin, chronically ill-appearing, white female, who appears older than her stated age of 61. Vital signs: BP 95/54, heart rate 85, respiration rate 20, oxygen saturation 97% on 2 L per nasal cannula. HEENT: Pupils are equal reactive oropharynx is clear. Neck: Supple. Chest: Reveals increase in the AP diameter. She has loss of subcutaneous fat and muscle. She has increased tympany to exam. There was an isolated wheeze noted in right apex. Cardiac Exam: Distant heart sounds. Normal S1, normal S2. Abdomen: Scaphoid and soft. Extremities: Without edema. LABORATORIES: Arterial blood gas on BiPAP revealed a pH 7.35, pCO2 of 55, PO2 of 98. White blood count 11.49, hemoglobin 13.6. Chemistry: Sodium 135, potassium 4.5, chloride 98, bicarbonate 27, BUN 20, creatinine 0.6. Troponin slightly elevated at 0.329. IMPRESSION: A 61-year-old with severe chronic obstructive pulmonary disease with chronic hypoxemic and hypercapnic respiratory failure, who presents with intermittent shortness of breath and weight loss. CT scan reveals a new mediastinal and hilar mass which was not present on a CT pulmonary angiogram in January 2016. Given the radiographic findings and the rapid development of the mass, a small-cell carcinoma is suspected. It is not clear there is an endobronchial component, but I believe the diagnosis can be made bronchoscopically. RECOMMENDATIONS: 1. Continue current treatment for COPD. 2. Anticipate bronchoscopy tomorrow morning. 3. Additional recommendations pending hospital course. cc: Oskar Calabrese MD
[2016-12-31] MEDS: SOLU-MEDROL IV SCH ×3 (01:34→17:43)
[2016-12-31] MEDS: PULMICORT INH SCH ×2 (07:48→19:23)
[2016-12-31] MEDS: BROVANA NEB INH SCH ×2 (07:48→19:33)
[2016-12-31] MEDS: COREG PO SCH ×2 (08:00→20:25)
[2016-12-31] MEDS: IMDUR PO SCH (08:00)
[2016-12-31] MEDS: COZAAR PO SCH (08:00)
--- NOTE | 2016-12-31 09:31 | PROGRESS NOTE ---
DATE: 12/31/2016 SUBJECTIVE: Ms. Cormier is feeling good this morning. She was sitting up. Denied any chest pain. No shortness of breath. She is aware of the plan for today for a chest or lung biopsy. PHYSICAL EXAMINATION: Vital Signs: Temperature is 97.6 degrees, pulse 78, respirations 20, blood pressure 136/81. Lungs: Are clear anterolateral with decreased breath sounds in both bases but no rhonchi or wheezing appreciated. CVP less than 6 cm. Lungs are clear in all lung jimenez as stated. Abdomen: Soft. Skin: Warm. Extremities: No pedal edema. Is and Os: Urine output is over 1 L. LAB: From reviewed. Hematocrit 40. Chemistries reviewed from the . The plan is a needle biopsy. She had an abdominal and pelvic CT done yesterday. No evidence of metastatic disease of her abdomen or pelvis. A CT of her chest which was done. Pulmonary arteriogram was done on the . Mass and adenopathy consistent with malignancy, large right-sided superior middle mediastinal mass extending into the hilum. ASSESSMENT AND PLAN: 1. The plan is, under Dr. Calabrese's direction, to get a CT guided needle biopsy. She has chronic obstructive pulmonary disease with chronic hypoxemic, hypercapnic respiratory failure, and she presented with shortness of breath and weight loss. CT scan shows mediastinal and hilar mass which is not present on CT arteriogram done in January 2016. We suspect the masses is small- cell carcinoma suspected so I guess he is going to try to it with a bronchoscopy and hopefully get a tissue diagnosis. 2. Exacerbation of chronic obstructive pulmonary disease. 3. She had some chest pain and elevated troponin. I suspect type 2 type angina. This is resolved but will probably need further workup later depending on the results of the biopsy. 4. I looked at orders and recent lab. I do not see any change. cc: Miguel Ovalle MD
[2016-12-31] MEDS ORDERED: EPINEPHRINE ONE (10:31)
[2016-12-31] MEDS ORDERED: XYLOCAINE 1% ONE (10:31)
[2016-12-31] MEDS ORDERED: XYLOCAINE 2% VISCOUS ONE (10:31)
[2016-12-31] MEDS ORDERED: XYLOCAINE 2% ONE (10:32)
[2016-12-31] MEDS ORDERED: SODIUM CHLORIDE 0.9% 20 ML ONE (10:32)
[2016-12-31] MEDS ORDERED: DIPRIVAN 1% ONE (11:03)
--- NOTE | 2016-12-31 13:08 | Diag Imaging Result Doc PS360 ---
BONE SCAN, TOTAL BODY - 12/30/2016 INDICATION: r/o mets TECHNIQUE: 27.5 mCi of MDP was administered COMPARISON: CTs from 12/29/2016 at 12/30/2016 FINDINGS: There is some minimal degenerative uptake at the shoulders. Otherwise skeletal uptake is normal. Soft tissue uptake is normal as well. IMPRESSION: No evidence of skeletal metastatic disease. Electronically signed by Trevon Riojas 12/31/2016 1:06 PM
[2016-12-31] MEDS: CLARITIN PO SCH (13:11)
[2016-12-31] MEDS: DUONEB (A & A) INH PRN (13:35)
--- NOTE | 2016-12-31 14:13 | OPERATIVE NOTE ---
PROCEDURE DATE: PROCEDURE PERFORMED: Bronchoscopy with Lemus needle aspirate of the trachea, and endobronchial biopsies of the air flow divider between the right upper lobe and bronchus intermedius. CLINICAL INDICATIONS: A 61-year-old with extensive mediastinal mass extending down and around the right hilum. PROCEDURE: After informed consent was obtained, the patient was brought to the operating room where the procedure was performed. Topical anesthesia was achieved with viscous lidocaine to the right nostril with 2% lidocaine instilled above the vocal cords and 1% lidocaine instilled below the vocal cords during the procedure. Monitored anesthesia care was provided by Anesthesia services. When topical anesthesia and sedation were achieved, bronchoscope was advanced through the right nostril to the level of the vocal cords. There was mild edema of the false vocal cords. True vocal cords were without lesions. The bronchoscope was advanced into the trachea. There was increase in clear tenacious secretions, which were suctioned for cultures and cytology. No definite endotracheal lesion was identified, although there was some nodularity in the mid trachea. Airways to the left mainstem lingula, left upper lobe and left lower lobe were patent and without lesions. In the right mainstem, the mucosa begin changing colors with a purplish hue. Increased vascular markings anteriorly. Tumor could be seen in involving the airflow divider between the right upper lobe and the bronchus intermedius. Video image was obtained. The bronchoscope was retracted back to the trachea. Lemus needle aspirates were performed at the 2 o'clock position in the trachea. No tissue was obtained, but cytology was performed. The bronchoscope was directed to the airflow divider between the right upper lobe and the bronchus intermedius. Multiple endobronchial biopsies were taken from this area. Bleeding was associated with the biopsies, which was controlled with installation of topical epinephrine. The patient tolerated the procedure without difficulty. IMPRESSION: 1. Tumor involving the distal mainstem and bronchus intermedius, and involving the airflow divider between the bronchus intermedius in the right upper lobe. Multiple biopsies performed, as per above. 2. Status post Lemus needle aspirate of the trachea. cc: Oskar Calabrese MD
[2016-12-31] MEDS: BUSPAR PO SCH (20:25)
[2016-12-31] MEDS: CRESTOR PO SCH (20:25)
[2017-01-01] MEDS: SOLU-MEDROL IV SCH ×4 (00:47→16:44)
[2017-01-01] MEDS: DUONEB (A & A) INH PRN ×3 (05:57→16:15)
[2017-01-01] MEDS: PULMICORT INH SCH ×2 (07:51→21:15)
[2017-01-01] MEDS: BROVANA NEB INH SCH ×2 (07:51→21:15)
[2017-01-01] MEDS: COZAAR PO SCH (08:16)
[2017-01-01] MEDS: CLARITIN PO SCH (08:16)
[2017-01-01] MEDS: IMDUR PO SCH (08:16)
[2017-01-01] MEDS: COREG PO SCH ×2 (08:16→20:26)
[2017-01-01] MEDS: CRESTOR PO SCH (20:26)
[2017-01-01] MEDS: BUSPAR PO SCH (20:26)
[2017-01-02] MEDS: SOLU-MEDROL IV SCH ×3 (03:10→16:39)
[2017-01-02] MEDS: DUONEB (A & A) INH PRN ×3 (03:20→19:58)
--- NOTE | 2017-01-02 03:33 | PROGRESS NOTE ---
DATE: 01/01/2017 SUBJECTIVE: Ms. Cormier had a good night. She did not spit up any blood. She is not having any pain and breathing is comfortable. I do not have results on her biopsy. Do not have any other tests planned. OBJECTIVE: Vital Signs: Today, temperature 97.4 degrees, pulse 87, respirations 16, blood pressure was 180/88. HEENT: Pupils are equal and round. CVP less than 6 cm. Lungs: Clear in all lung jimenez. Cardiovascular Examination: Regular rhythm and rate without murmur or S3. Abdomen: Soft. Skin: Warm, dry. ASSESSMENT AND PLAN: 1. Chronic obstructive pulmonary disease. 2. Lung mass, biopsies pending. The culture results were negative for fungus or bacteria. Continue present therapy. Dr. Calabrese and Dr. Carroll following. cc: Miguel Ovalle MD
--- NOTE | 2017-01-02 07:14 | PROGRESS NOTE ---
DATE: 01/02/2017 SUBJECTIVE: She had a pretty good night. This morning had a little bit of cough and shortness of breath. Plan is to move her to the floor and begin chemotherapy. OBJECTIVE: Vital signs: Temperature is 97.9 degrees, pulse 84, respirations 18, blood pressure 145/87. HEENT: Pupils are equal, round. Lungs: Clear in all lung jimenez. Decreased breath sounds both bases. Cardiovascular: Regular rhythm and rate without murmur or S3. Abdomen: Soft. Skin is warm and dry. Urine output 800 mL. LAB: White count 37273, hematocrit 40, platelet count 314,000. Chemistry: No new chemistries at this point. ASSESSMENT: 1. Chronic obstructive pulmonary disease. Advanced age. 2. Lung mass. Results by report appear consistent with small cell lung cancer. PLAN: Plan is to start chemotherapy today and move her to the floor. Looking over orders and medication, I do not see any other change at this point. Encourage her to eat. Appetite is kind of marginal. cc: Miguel Ovalle MD
[2017-01-02] MEDS: COZAAR PO SCH (08:38)
[2017-01-02] MEDS: CLARITIN PO SCH (08:38)
[2017-01-02] MEDS: COREG PO SCH ×2 (08:38→21:27)
[2017-01-02] MEDS: IMDUR PO SCH (08:38)
[2017-01-02] MEDS ORDERED: BROVANA NEB ONE ×2 (08:57→20:07)
[2017-01-02] MEDS: PULMICORT INH SCH ×2 (10:52→19:58)
[2017-01-02] MEDS: BROVANA NEB INH SCH ×2 (10:52→19:58)
[2017-01-02] MEDS ORDERED: COREG PO ONE (12:04)
[2017-01-02] MEDS: CRESTOR PO SCH (21:27)
[2017-01-02] MEDS: BUSPAR PO SCH (21:27)
[2017-01-03] MEDS: SOLU-MEDROL IV SCH ×3 (01:51→19:24)
[2017-01-03] MEDS: DUONEB (A & A) INH PRN ×2 (02:43→14:55)
[2017-01-03 06:50] LABS: AGAP 10; BUN 43 mg/dL (8-22); CALCIUM 9.4 mg/dL (8.8-10.2); CHLORIDE 100 mmol/L (98-107); COSMO 297; POTASSIUM 5.1 mmol/L (3.5-5.1); SODIUM 143 mmol/L (136-145); TCO2 33 mmol/L (25-35)
[2017-01-03] MEDS: PULMICORT INH SCH ×2 (07:41→20:30)
[2017-01-03] MEDS: BROVANA NEB INH SCH ×2 (07:41→20:30)
--- NOTE | 2017-01-03 09:37 | CONSULTATION ---
DATE OF CONSULTATION: 12/30/2016 We appreciate this consult. CHIEF COMPLAINT: New anterior mediastinal mass. HISTORY OF PRESENT ILLNESS: Ms. Cormier is a 61-year-old, female with a history of hypertension, hyperlipidemia, and COPD on 2 L nasal cannula O2 at home as well as myocardial infarction, in January 2016. The patient presents to [facility] secondary to significant shortness of breath. The patient reports that her power went off and this triggered her shortness of breath. Upon presentation to [facility] the patient had developed chest pain and cardiac enzymes were obtained. Troponins were elevated and the patient was admitted and begun on a heparin drip. CT scan was obtained to rule out pulmonary embolism. Pulmonary embolism was not found however new anterior mediastinal mass was revealed. The patient was transferred to [facility] for further evaluation and for consult with Oncology. PAST MEDICAL HISTORY: As in HPI. PAST SURGICAL HISTORY: None. FAMILY HISTORY: Negative for any hematologic or oncologic problems. SOCIAL HISTORY: The patient quit smoking in 2015. She does not use alcohol. The patient reports that she smokes marijuana for panic attacks. MEDICATIONS ON ADMISSION: 1. Montelukast. 2. Crestor. 3. Ventolin inhaler. 4. Fluticasone salmeterol. 5. Isosorbide mononitrate. 6. Carbatrol. 7. Nitroglycerin sublingual p.r.n. 8. Buspirone. 9. Loratadine. 10. Aspirin 81 mg. ALLERGIES: None. REVIEW OF SYSTEMS: A 14 point review of systems was obtained and is negative except as mentioned in HPI. PHYSICAL EXAM: Ms. Cormier is a very pleasant, 61-year-old female lying supine in bed in no immediate distress.Vital Signs: Temperature 97.5 degrees, blood pressure 95/65, heart rate 75, respirations are 17. O2 saturations 100% on 2 L nasal cannula O2. HEENT: Normocephalic, atraumatic. Mucous membranes pink and moist. Sclerae is anicteric. Extraocular movements intact. Neck: Supple. Lungs: Scattered wheezing throughout all lung jimenez with diminished breath sounds. CV: S1, S2 is heard without murmur, rub or gallop. Abdomen: Soft, nondistended, nontender. Bowel sounds positive all quadrants. No rebound or guarding noted. Extremities: Without clubbing, cyanosis, or edema. Dermatologic: No rashes, bruises or lesions. Neurologic: The patient is awake, alert, and oriented. She has no focal motor deficit at this time. LABORATORY DATA: Hemoglobin 13.6, hematocrit 40.0, white blood cell count 11.49, platelets 315,000. ANC 9.48, ALC is 1.52. INR 0.86. Sodium 135, potassium 4.5, chloride 98, CO2 is 27, BUN 20, creatinine 0.6, and glucose is 193. INR is 0.86. Calcium 9.4, magnesium 2.1. Troponins are 0.329. BNP is 83. IMAGING STUDIES: CTA reveals mass adenopathy in the mediastinal region with emphysema and no pulmonary embolism. ASSESSMENT AND PLAN: 1. New anterior mediastinal mass in a patient with a long history of smoking. We will check CT of the abdomen and pelvis to rule out any metastatic lesion. Additionally we will obtain bone scan to rule out a skeletal metastasis. Pulmonology will be consulted for bronchoscopy with biopsy. We will check an SPEP and LDH as well. 2. Emphysema with a long history of smoking. Would continue medications as ordered. 3. Non-Q-wave VT. Currently on IV heparin drip. Cardiology is currently following. 4. We will follow along with you and make further recommendations pending outcomes. The above reflects the history, exam, assessment and plan of Dr. Carroll. Dictated by SHANIQUA Camargo for Jr Carroll MD cc: SHANIQUA Camargo MD
[2017-01-03] MEDS: IMDUR PO SCH (10:36)
[2017-01-03] MEDS: COZAAR PO SCH (10:36)
[2017-01-03] MEDS: CLARITIN PO SCH (10:36)
[2017-01-03] MEDS: COREG PO SCH ×2 (10:36→22:50)
[2017-01-03] MEDS: ASPIRIN PO SCH (10:36)
[2017-01-03] MEDS: ZYLOPRIM PO SCH ×2 (12:04→22:50)
[2017-01-03 12:19] LABS: BASO% 0.1 % (0.0-0.8); EOS# 0.06 X1000 (0.0-0.7); EOS% 0.4 % (0.0-10.0); HEMATOCRIT 40.2 % (37.0-47.0); HEMOGLOBIN 13.3 g/dL (12.0-16.0); IMM GRAN# 0.03 X1000 (0.0-0.04); IMM GRAN% 0.2 % (0.0-0.5); LYMPH# 0.84 X1000 (1.2-3.4); LYMPH% 6.3 % (20.5-51.1); MANUAL DIFF NEEDED? YES; MCH 31.4 PG (27-31); MCHC 33.1 g/dL (33-37); MONO# 0.29 X1000 (0.11-0.59); MONO% 2.2 % (1.7-9.3); MPV 10.1 FL (7.4-10.4); NEUT% 90.8 % (42.2-75.2); PLT 315 X1000 (130-400); RBC 4.23 XMIL (4.2-5.4)
[2017-01-03 13:18] LABS: BANDS 8 % (0-1); LYMPHS 8 % (21-51); MONO 2 % (1-9)
[2017-01-03] MEDS ORDERED: EMEND 150 MG in NS 145 ML IV ONE (14:00)
[2017-01-03] MEDS ORDERED: DECADRON IV ONE (14:20)
[2017-01-03] MEDS ORDERED: ZOFRAN 16 MG in NS 50 ML IV ONE (14:30)
[2017-01-03] MEDS ORDERED: PARAPLATIN IV ONE (15:00)
[2017-01-03] MEDS ORDERED: NS IV ONE ×2 (15:00→16:00)
[2017-01-03] MEDS ORDERED: VEPESID IV ONE (16:00)
--- NOTE | 2017-01-03 16:06 | PROGRESS NOTE ---
DATE: 01/03/2017 SUBJECTIVE: Patient is feeling quite a bit better. She is scheduled to start her chemotherapy today. Breathing is comfortable. Remains afebrile. OBJECTIVE: PHYSICAL EXAMINATION: Vital Signs: Temperature 97.8 degrees, pulse 85, respirations 18, blood pressure 135/64. HEENT: Pupils are equal and round. Lungs: Clear in all lung jimenez. Cardiovascular: Regular rhythm and rate without murmur or S3. Abdomen: Soft. Skin: Warm and dry. ASSESSMENT AND PLAN: 1. Lung mass biopsy appears to be consistent I think with small cell. Going to check him for any evidence of metastasis. 2. Emphysema, chronic obstructive pulmonary disease. Long history of smoking. 3. Non Q-wave myocardial infarction. Currently on IV heparin drip. Cardiology following. To begin her chemotherapy today. cc: Miguel Ovalle MD
[2017-01-03] MEDS: CRESTOR PO SCH (22:50)
[2017-01-03] MEDS: BUSPAR PO SCH (22:50)
[2017-01-04] MEDS: SOLU-MEDROL IV SCH ×3 (01:33→18:11)
[2017-01-04] MEDS: ASPIRIN PO SCH (08:28)
[2017-01-04] MEDS: CLARITIN PO SCH (08:28)
[2017-01-04] MEDS: IMDUR PO SCH (08:28)
[2017-01-04] MEDS: ZYLOPRIM PO SCH ×2 (08:28→22:02)
[2017-01-04] MEDS: COREG PO SCH ×2 (08:28→22:09)
[2017-01-04] MEDS: COZAAR PO SCH (08:28)
[2017-01-04] MEDS ORDERED: BROVANA NEB ONE (10:17)
[2017-01-04] MEDS: BROVANA NEB INH SCH ×2 (10:18→20:10)
[2017-01-04] MEDS: PULMICORT INH SCH ×2 (10:18→20:10)
[2017-01-04] MEDS: DUONEB (A & A) INH PRN ×2 (10:18→15:13)
--- NOTE | 2017-01-04 12:46 | DISCHARGE SUMMARY ---
ADMISSION DATE: 12/29/2016 DISCHARGE DATE: HOSPITAL COURSE: Ms. Cormier states that every morning she is little short of breath. She still had a little bit of wheezing. It is starting to level off while sitting up in her bed, sitting style, and feeling better. She has been eating. She did finish her initial course of chemo. Vital Signs: Temperature 97.9 degrees, pulse 84, respirations 20, blood pressure 152/60. Pupils are equal and round. Lungs are clear in all lung jimenez. Cardiovascular: Regular rhythm and rate without murmur or S3. Abdomen is soft. Skin is warm and dry. Urine output 1600 mL. LABORATORIES: Reviewed. CBC and chemistry: Sodium 143, potassium 5.1, chloride 100. BUN 43, creatinine 0.7. CBC reviewed from 01/03/2017. White count 13,440. Hematocrit 40. Platelet count 315,000. ASSESSMENT AND PLAN: 1. Lung mass appears consistent with small cell chemotherapy initiated. Did not find any metastatic lesion in the abdomen or pelvis. 2. Emphysema. Long history of smoking. On home O2. 3. Non Q-wave WI when she presented. I suspect this is type 2 oxygen myocardial mismatch. 4. Encouraged p.o. intake and encouraged increased activity. I reviewed the orders. I do not see any change at this point. cc: Miguel Ovalle MD
--- NOTE | 2017-01-04 13:02 | PROGRESS NOTE ---
DATE: 01/04/2017 CHIEF COMPLAINT: "I slept very well last night." VITAL SIGNS: Blood pressure 163/71, pulse 83, respirations 20, temperature 98.6 degrees Fahrenheit, O2 saturation 97% on 2 L nasal cannula. X-RAY DATA: Chemistry: Total white blood cell count 13.8. LABORATORY DATA: 01/03/2017: Total white blood cell count 13.44. Hemoglobin 13.3, hematocrit 40.2, platelet count 315,000. Sodium 143, potassium 5.1. BUN 43, creatinine 0.7. Calcium 9.4, magnesium 2.5. ASSESSMENT AND PLAN: 1. Small cell lung cancer, status post carboplatin in ACCOUNTS RECEIVABLE ASSOCIATE-16, 01/03/2017, The patient tolerated treatment well and denies any nausea, vomiting, constipation or diarrhea. She reports she slept well last night is also eating well. We will continue to monitor for side effects and treat as needed. 2. Chronic obstructive pulmonary disease. She will continue O2 support and medications as per Dr. Calabrese. 3. Non-Q-wave MS. She will continue present management as per Dr. Kirkland. 4. Tumor lysis prophylaxis. She is on allopurinol 100 mg p.o. b.i.d. We will continue to follow labs. Dictated by SHANIQUA Kurtz for Lorena Rowe MD cc: Lorena Rowe MD I have seen and examined the patient and agree with the above A/P Lorena Rowe MD [facility]
[2017-01-04] MEDS: CRESTOR PO SCH (22:09)
[2017-01-04] MEDS: BUSPAR PO SCH (22:09)
[2017-01-05] MEDS: SOLU-MEDROL IV SCH ×3 (01:21→17:15)
[2017-01-05] MEDS: PULMICORT INH SCH ×2 (07:35→20:20)
[2017-01-05] MEDS: DUONEB (A & A) INH PRN ×2 (07:35→16:01)
[2017-01-05] MEDS: BROVANA NEB INH SCH ×2 (07:35→20:20)
[2017-01-05] MEDS: CLARITIN PO SCH (09:05)
[2017-01-05] MEDS: COZAAR PO SCH (09:05)
[2017-01-05] MEDS: COREG PO SCH ×2 (09:05→21:58)
[2017-01-05] MEDS: ZYLOPRIM PO SCH ×2 (09:05→21:58)
[2017-01-05] MEDS: IMDUR PO SCH (09:05)
[2017-01-05] MEDS: ASPIRIN PO SCH (09:05)
--- NOTE | 2017-01-05 14:39 | PROGRESS NOTE ---
DATE: 01/05/2017 SUBJECTIVE: Ms. Cormier is feeling good. She is breathing comfortably. No complaints of pain. OBJECTIVE: Vital Signs: Temperature 97.9 degrees, pulse 80, respirations 17, blood pressure 123/69. HEENT: Pupils are equal. Neck: CVP less than 6 cm. No distended neck veins. Neck supple without any cervical or supraclavicular adenopathy. Respiratory: Lungs are clear in all lung jimenez. Cardiovascular: Regular rhythm and rate without murmur or S3. Abdomen: Soft. Skin: Warm and dry. Urine output 1450 mL. ASSESSMENT AND PLAN: 1. Large lung mass consistent with small-cell, began chemotherapy. 2. Emphysema, long history of smoking, on home O2. 3. Non Q-wave myocardial infarction early on hospitalization, suspect mismatch ischemia. No further chest pain. 4. Encourage p.o. intake for nutrition to try and gain some weight. She is status post carboplatin and FLEECER-16 on 01/03/2017. Tolerated treatment well. Denied any trouble. She was put on allopurinol 100 mg b.i.d. prophylaxis. I will discuss with the team and maybe she can go home tomorrow. cc: Miguel Ovalle MD
[2017-01-05] MEDS: CRESTOR PO SCH (21:58)
[2017-01-05] MEDS: BUSPAR PO SCH (21:58)
[2017-01-06] MEDS: SOLU-MEDROL IV SCH ×3 (01:32→16:48)
[2017-01-06] MEDS: DUONEB (A & A) INH PRN ×3 (03:50→15:16)
[2017-01-06 06:06] LABS: EOS# 0.01 X1000 (0.0-0.7); EOS% 0.1 % (0.0-10.0); HEMATOCRIT 38.4 % (37.0-47.0); HEMOGLOBIN 13.1 g/dL (12.0-16.0); IMM GRAN# 0.04 X1000 (0.0-0.04); IMM GRAN% 0.2 % (0.0-0.5); LYMPH# 0.55 X1000 (1.2-3.4); LYMPH% 3.1 % (20.5-51.1); MANUAL DIFF NEEDED? YES; MCH 31.5 PG (27-31); MCHC 34.1 g/dL (33-37); MCV 92.3 FL (81-99); MONO# 0.26 X1000 (0.11-0.59); MONO% 1.5 % (1.7-9.3); NEUT% 95.1 % (42.2-75.2); PLT 287 X1000 (130-400); RBC 4.16 XMIL (4.2-5.4)
[2017-01-06 06:15] LABS: AGAP 8; ALBUMIN 3.6 g/dL (3.5-5.0); ALKALINE PHOSPHATASE 45 U/L (32-104); BUN 40 mg/dL (8-22); CALCIUM 9.2 mg/dL (8.8-10.2); CHLORIDE 99 mmol/L (98-107); COSMO 286; GOT 16 U/L (10-30); GPT 22 U/L (10-36); POTASSIUM 4.9 mmol/L (3.5-5.1); SODIUM 138 mmol/L (136-145); TCO2 31 mmol/L (25-35); TOTAL BILIRUBIN 0.65 mg/dL (0.20-1.00); TOTAL PROTEIN 5.4 g/dL (6.3-8.3)
[2017-01-06 06:59] LABS: LYMPHS 2 % (21-51)
[2017-01-06] MEDS ORDERED: BROVANA NEB ONE ×2 (07:14)
[2017-01-06] MEDS: BROVANA NEB INH SCH (07:23)
[2017-01-06] MEDS: PULMICORT INH SCH (07:23)
[2017-01-06] MEDS: IMDUR PO SCH (08:40)
[2017-01-06] MEDS: ZYLOPRIM PO SCH (08:40)
[2017-01-06] MEDS: CLARITIN PO SCH (08:41)
[2017-01-06] MEDS: COREG PO SCH (08:41)
[2017-01-06] MEDS: COZAAR PO SCH (08:41)
[2017-01-06] MEDS: ASPIRIN PO SCH (08:41)
--- NOTE | 2017-01-06 11:17 | PROGRESS NOTE ---
DATE: 01/04/2017 ADDENDUM: PHYSICAL EXAM: GENERAL: The patient appears to be in no apparent distress. VITAL SIGNS: Blood pressure 163/71, pulse 83, respirations 20, temperature 98.6 degrees Fahrenheit, O2 saturation 97% on 2 L nasal cannula. HEENT: Head normocephalic, atraumatic. Mucosa is pale and moist. Pupils reactive to light. Oropharynx clear. NECK: Supple. No lymphadenopathy or thyromegaly. CARDIOVASCULAR: S1, S2. Regular rate and rhythm. No murmurs noted. RESPIRATORY: Breath sounds clear to auscultation bilaterally. No rhonchi, rales or wheezing noted. ABDOMEN: Soft, nontender, nondistended. Positive bowel sounds. EXTREMITIES: No evidence of edema, DVT or cyanosis. SKIN: No rashes or lesions noted. NEUROLOGICAL: No focal neurological deficits. Dictated by SHANIQUA Kurtz for Lorena Rowe MD cc: Lorena Rowe MD [facility]
--- NOTE | 2017-01-06 13:41 | PROGRESS NOTE ---
DATE: 01/06/2017 CHIEF COMPLAINT: "I feel very well. OBJECTIVE: Vital signs: Temperature 97.5, blood pressure 181/81, heart rate 80 , respirations are 19. O2 saturation is 97% on 2 L nasal cannula O2. LABS: Hemoglobin is 13.1, hematocrit 38.4, white blood cell count 17.71, platelets 287,000. ANC is 16.85, sodium 138, potassium 4.9, chloride 99, CO2 is 31, BUN 40, creatinine 0.6, and glucose is 108, uric acid is 1.8, calcium is 9.2. Phosphorus is 4.0. PHYSICAL EXAM: HEENT: Normocephalic, atraumatic. Mucous membranes are pink and moist. Sclerae is anicteric. Extraocular movements intact. Neck: Supple. Lungs: With coarse breath sounds throughout. Chest expansion is equal bilaterally. CV: S1, S2 is heard without murmur, rub or gallop. Abdomen: Soft, nondistended, nontender. Bowel sounds positive all quadrants. No rebound or guarding noted. Extremities: Without clubbing, cyanosis, or edema. Dermatologic: No rashes, bruises or lesions. Neurologic: The patient has no focal deficits. She is awake, alert and oriented x3. ASSESSMENT AND PLAN: 1. Small-cell lung cancer status post carboplatin and SUPERVISOR MICROFILM DUPLICATING UNIT-16 on 01/03/2017. The patient has tolerated treatment well. She denies any complaints at this time. Performance status is excellent. We will consult Maria Sun for radiation. The patient is appropriate for discharge at this time. She will be followed in clinic within the week and be treated with Neulasta tomorrow. 2. Chronic obstructive pulmonary disease. The patient will continue oxygen support as needed and medications per Dr. Calabrese. 3. Non-Q-wave myocardial infarction. The patient is currently being followed by Dr. Kirkland. 4. Tumor lysis prophylaxis. The patient will continue allopurinol 100 mg p.o. b.i.d. This is Delia Jarquin Nurse Practitioner dictating a progress note for Dr. Lorena Rowe. Dictated by SHANIQUA Camargo for Lorena Rowe MD cc: SHANIQUA Camargo MD I have seen and examined the patient and the above note reflects my evaluation , assessment and plan. Lorena SANDERS
[2017-01-06 14:48] VITALS: BP 152/86
--- NOTE | 2017-01-06 15:44 | PROGRESS NOTE ---
DATE: 01/06/2017 SUBJECTIVE: Ms. Cormier is feeling good. I think she would like to go home. Breathing about the same. She does feel a little tired. OBJECTIVE: Vital Signs: Temperature 97.8 degrees, pulse 67, respirations 14, blood pressure 152/86. Lungs: Clear in all lung jimenez. Cardiovascular: Regular rhythm and rate without murmur or S3. Abdomen: Soft. Skin: Warm and dry. Urine output 1800 mL. LABORATORIES: From today, white count is up 17,710, hematocrit 38, platelet count 287,000. Sodium 138, potassium 4.9, chloride 99, BUN 40, creatinine 0.6. ASSESSMENT AND PLAN: 1. Small cell lung cancer status post cisplatin ENVIRONMENTAL STUDIES PROFESSOR-16 on 01/03/2017. The patient is tolerating treatment. Denies any complaints. Performance status is excellent. Going to consult Dr. Maria Sun for radiation. I think that she can go home. 2. Chronic obstructive pulmonary disease. Oxygen support as needed continued. 3. Non-Q-wave myocardial infarction early on when she came in. I think it was oxygen tissue see mismatch. 4. Tumor lysis prophylaxis. She is on allopurinol 100 mg b.i.d. We will get her set up to go home. Follow up with Dr. Sun and follow up with Dr. Carroll. cc: Miguel Ovalle MD
--- NOTE | 2017-01-06 16:52 | DISCHARGE SUMMARY ---
ADMISSION DATE: 12/29/2016 DISCHARGE DATE: 01/06/2017 HOSPITAL COURSE: A 61-year-old, does not have a primary care physician. She was admitted with shortness of breath and a questionable mediastinal mass. Past medical history of hypertension, hyperlipidemia, COPD on 2 L of home O2. She had a myocardial infarction January 2016 and came to the hospital via ambulance, transferred to [place]. Patient presented to [place] on 12/29/2016 complaining of shortness of breath. According to the patient, the power went off and then it triggered shortness of breath, did not have her oxygen. She went to [place] for COPD treatment. Patient had an inhalation treatment. Shortness of breath improved. She was back to baseline. However, while she was in the emergency room, developed chest pain. Troponins were obtained. Troponin initially positive at 0.135. She was given some heparin and she also had a D-dimer that was a little elevated, so they did a CT arteriogram. There was no sign of embolism. Concerned about some ischemia. They also found a mass on her CAT scan. Dr. Kirkland was consulted. He felt like elevated troponin was probably a chronically elevated troponin given her recent cardiac catheterization. The abnormal troponin was mentioned back in January. So he did not see any evidence of active ischemia. She may have had a little bit of O2 tissue mismatch. She has underlying COPD and a questionable malignancy on a CAT scan, and also Pulmonary was consulted. She had an abdominal/pelvic CT done on the and urinary bladder was unremarkable with no evidence of free fluid. There was an adnexal mass. There was no evidence of significant adenopathy. Dr. Calabrese performed bronchoscopy on 12/31/2016. Tumor involving distal mainstream and bronchus intermedius involving the airflow divided between the bronchus intermedius and the right lower lobe. Multiple biopsies were obtained. Status post warm needle aspirate of the trachea. Pathology came back small-cell cancer. 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 Oncology was consulted, Dr. Carroll, and she underwent induction chemotherapy. She received VP16 and carboplatin and on 01/03/2017 tolerated this well. She felt she wanted go home on 01/06/2017. DISCHARGE INSTRUCTIONS: We will continue present medication. She will stay on her Ventolin inhaler, allopurinol 100 mg b.i.d., aspirin 81 mg a day, buspirone 10 mg at bedtime, Coreg 3.125 mg a day, fluticasone salmeterol, which is Advair 252-50 one puff b.i.d., Imdur ER 30 mg a day,loratadine 10 mg a day, Singulair 10 mg q.a.m., montelukast 10 mg q.a.m. and Crestor 10 mg a day. She has nitroglycerin to take p.r.n. Follow up with Dr. Sun. Also follow up with Dr. Carroll. cc: Miguel Ovalle MD
--- NOTE | 2017-01-22 11:11 | CONSULTATION ---
DATE OF CONSULTATION: 01/06/2017 REASON FOR CONSULTATION: New diagnosis of lung cancer. HISTORY OF PRESENT ILLNESS: The patient is a 61-year-old female, who presented on December 29 with shortness of breath. She had a CT scan on that day which showed a mediastinal mass. She was admitted to [facility]. Further imaging showed no other obvious evidence of disease. Biopsy on 12/31/2016 revealed this to be a poorly differentiated small cell neuroendocrine carcinoma. Chemotherapy has been started and I have been consulted for consideration of concurrent radiation. PAST MEDICAL HISTORY: Hypertension, hyperlipidemia, chronic obstructive pulmonary disease, myocardial infarction. PAST SURGICAL HISTORY: None. HOME MEDICATIONS: Montelukast, Crestor, Ventolin, fluticasone, isosorbide, carvedilol, nitroglycerin, buspirone, loratadine, and aspirin. SOCIAL HISTORY: The patient quit smoking in 2015. She denies alcohol use. She occasionally uses marijuana for panic attacks. FAMILY HISTORY: The patient has no significant family history of cancer. REVIEW OF SYSTEMS: The patient has lost 12 pounds the last 6 weeks. She denies any night sweats. PHYSICAL EXAMINATION: Vitals: Per the hospital record. HEENT: Normocephalic, atraumatic. Pupils equal, round, react to light. Extraocular movements are intact. The sclerae are anicteric. Neck: Supple with no lymphadenopathy. Heart: Regular rate and rhythm. Lungs: Clear bilaterally. Abdomen: Soft and nontender. Extremities: Reveal no edema. Neurologic Examination: Reveals cranial nerves 2-12 to be intact. There are no focal deficits. ASSESSMENT/PLAN: I agree with the recommendation for concurrent chemotherapy and radiation. We will arrange to start treatment concurrent with her 2nd cycle of chemotherapy. We have reviewed the risks and benefits of radiation therapy in detail, as well as expected short and long-term side effects treatment. The patient is in agreement with treatment plan. She has been scheduled for simulation. cc: Isaura Sun MD
== END 2017-01-06 18:10 | disposition home or self-care (01) ==
LOC: P.ED 01:40 → SUATTDRO 05:08 → 3N 05:08 → 3S 13:01 → 3N 01-02 14:06
PROVIDERS: ATTEND Emergency Medicine